=== PATIENT | male | born 1960 | race Caucasian/White ===

== ENCOUNTER → 2024-07-24 | Outpatient (CLI) | payer OTHER ==
--- NOTE | 2024-07-26 07:48 | HMCSR ---
APPROVED REPORT EXAM: Two-dimensional and M-mode echocardiogram with Doppler and color Doppler. INDICATION ICD: R60.9 Edema, unspecified 2D Dimensions IVSd0.8 (0.7-1.1cm)LVEF(%)56.5 (>50%)LVEF(%, simp.)63 % LVDd4.9 (3.8-5.6cm)FS(%)30 %LA ESV INDEX (BP)25.13 mL/m2 PWd0.8 (0.7-1.1cm)LA (2D)4.6 (1.6-4.0cm) IVSs1.1 cmAo Root(2D)3.4 (2.0-3.7cm) LVDs3.4 (2.5-4.0cm)LVOT diam2.0 (1.8-2.4cm) PWs1.4 cm M-Mode Dimensions EPSS0.7 cm LA (MM)4.7 (1.6-4.0cm) Ao Root(MM)2.6 (2.0-3.7cm) Aortic Valve AoV Vmax1.4 m/Lucille Peak GR7.9 mmHgLVOT Vmax1.2 m/s AoV VTI0.3 mAo Mean GR4.5 mmHgLVOT VTI0.29 m BRINDA (VMAX)2.9 cm2AVA (VTI) 2.9 cm2 Mitral Valve MV E Vmax86.8 cm/sDECEL Rlhh046 ms MV A Vmax35.7 cm/sP 1/2 T88 ms E/A ratio2.4MVA (PHT)2.5 cm2 TDI E/E' Txuzkk56.4E/E' Xzqwgdd31.9 Medial E' Peak V7.00 cm/sLateral E' Peak V8.00 cm/s Pulmonary Valve PV Vmax1.1 m/s Tricuspid Valve TR Vmax2.4 m/sRAP (EST) 3 wlMcPHDO48.1 mmHg TR Peak GR24.1 mmHg Left Ventricle The left ventricle is normal size. There is normal LV segmental wall motion. There is normal left zoran tricular wall thickness. The LVEF is > 55%. No left ventricle thrombus noted on this study. The left ventricular diastolic function is normal. Right Ventricle The right ventricle is normal size. The right ventricular systolic function is normal. Atria The left atrium size is normal. The right atrium size is normal. Aortic Valve The aortic valve is normal in structure. No aortic regurgitation is present. There is no aortic valvu lar stenosis. Mitral Valve The mitral valve is normal in structure. There is trace of mitral valve regurgitation noted. There is no mitral valve stenosis. Tricuspid Valve The tricuspid valve is normal in structure. There is trace of tricuspid valve regurgitation noted. Pulmonic Valve The pulmonary valve is normal in structure. There is mild pulmonic valvular regurgitation. Great Vessels The aortic root is normal in size. The IVC is normal in size and collapses >50% with inspiration. Pericardium There is no pericardial effusion. Other Information Quality : Adequate Conclusion The left ventricle is normal size. The LVEF is > 55%. The left ventricular diastolic function is normal. The right ventricle is normal size. The left atrium size is normal. The aortic valve is normal in structure. No aortic regurgitation is present. There is no aortic valvular stenosis. The mitral valve is normal in structure. There is trace of mitral valve regurgitation noted. There is no mitral valve stenosis. There is trace of tricuspid valve regurgitation noted. There is mild pulmonic valvular regurgitation. The aortic root is normal in size. The IVC is normal in size and collapses >50% with inspiration. There is no pericardial effusion.
== END | disposition home or self-care (01) ==
LOC: SHCH 10:39
PROVIDERS: ATTEND Internal Medicine Cardiovascular Disease
DX: I37.1 Nonrheumatic pulmonary valve insufficiency (principal); R60.9 Edema, unspecified
CPT/HCPCS: 93306

== ENCOUNTER → 2024-09-13 | Outpatient (CLI) | payer OTHER ==
--- NOTE | 2024-09-13 13:38 | HMCIMG ---
Esophagogram History: DYSPHAGIA Comparison: none Contrast: barium sulfate suspension, effervescent granules TECHNIQUE: EXAMINATION IS DONE UNDER FLUOROSCOPIC CONTROL, WITH FLUOROSCOPIC SPOTS OBTAINED. ALSO, OVERHEAD AP AND LATERAL VIEWS WERE OBTAINED. 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 There is an offset of these 2 plates when seen in the lateral view, which creates a shelf like indentation upon the lower nasopharyngeal wall and the wall of the proximal esophagus immediately below the level of the cricopharyngeus muscle. Under fluoroscopic evaluation, the patient's esophagus demonstrates normal course, contour and caliber. Normal motility is seen. Mucosa is unremarkable. There is no evidence focal destructive lesion or stenosis or stricture. No neoplastic lesions identified or suspected. The pharyngeal structures including vallecula and piriform sinuses are unremarkable. Swallowing mechanism is normal without evidence of penetration or aspiration. IMPRESSION: Indentation upon the proximal esophagus posterior wall by offset of 2 cervical spine plates. This may cause symptoms of dysphagia.
== END | disposition home or self-care (01) ==
LOC: RAH 09:52
PROVIDERS: ATTEND Student in an Organized Health Care Education/Training Program
DX: R13.19 Other dysphagia (principal); M47.812 Spondylosis without myelopathy or radiculopathy, cervical region; Z98.890 Other specified postprocedural states
CPT/HCPCS: 74220